=== PATIENT | female | born 1980 | race Caucasian/White ===

== ENCOUNTER 2020-06-06 02:24 | Outpatient (CLI) | payer OTHER, SELFPAY ==
--- NOTE | 2020-06-06 | DI.MRI_ITS ---
EXAM: MR UPPER JOINT RT WO CLINICAL HISTORY: S46.011D,TRAUMATIC COMPLETE TEAR RT ROTATOR CUFF, SHOULDER PAIN. TECHNIQUE: Multiplanar multisequence MRI was performed. COMPARISON: No exams were available for comparison FINDINGS: BONES: There is no fracture or contusion pattern. JOINTS: The acromioclavicular joint is normal. The glenohumeral joint is normal. TENDONS: Supraspinatus: There is a full-thickness tear of the supraspinatus tendon at its insertion site anter iorly. Infraspinatus: Unremarkable. Subscapularis: Mild tendinosis of the subscapularis tendon. Teres Minor: Unremarkable. Biceps and Jasper: Unremarkable. MUSCLES: Unremarkable. GLENOID LABRUM: Unremarkable on this noncontrast examination. SOFT TISSUES: Unremarkable. LIGAMENTS: Unremarkable. OTHER: There is a small amount of fluid in the subacromial subdeltoid bursa. IMPRESSION: Small full-thickness tear of the supraspinatus tendon anteriorly at its insertion site. DATA REPOSITORY:
== END 2020-06-06 02:44 ==
PROVIDERS: PCP Nurse Practitioner Family; Visit Provider Orthopaedic Surgery
DX: S46.011D Strain of muscle(s) and tendon(s) of the rotator cuff of right shoulder, subsequent encounter (principal); M25.511 Pain in right shoulder; X58.XXXD Exposure to other specified factors, subsequent encounter; M67.813 Other specified disorders of tendon, right shoulder
CPT/HCPCS: 73221